=== PATIENT | female | born 1985 | race Caucasian/White ===

== ENCOUNTER 2016-12-09 09:36 | Emergency (ER) | payer MEDICAID ==
--- NOTE | 2016-12-09 11:38 | ER Document Report ---
ED Extremity Problem, Lower - General Chief Complaint: Knee Pain Stated Complaint: LEG PAIN Mode of Arrival: Ambulatory Information source: Patient Notes: 31 y/o F presents to ED c/o of R knee pain. Pt reports approximately 1 month ago she had a slip and near fall during which she injured her right knee. Reports has been evaluated by pcp and has been having sessions with physical therapy. States yesterday evening was doing her physical therapy exercises at home when her right knee gave out. States she felt a pop and her pain has been worse than it has been recently. Denies swelling, color changes, or paresthesias. TRAVEL OUTSIDE OF THE [place] IN LAST 30 DAYS: No - HPI Patient complains to provider of: Pain Location: Knee Occurred: Yesterday Onset/Duration: Worse Quality of pain: Achy Severity: Moderate Pain Level: 3 Recent injury: Possibly Associated symptoms: Alcorn a pop, Painful ambulation Exacerbated by: Movement, Walking Relieved by: Elevation, Ice, Rest - Related Data Allergies/Adverse Reactions: azithromycin [Azithromycin] Allergy (Severe, Verified 05/26/15 23:14) Anaphylaxis cephalexin [Cephalexin] Allergy (Severe, Verified 05/26/15 23:14) Anaphylaxis cephalexin monohydrate [From Keflex] Allergy (Severe, Verified 05/26/15 23:14) Anaphylaxis erythromycin base [Erythromycin Base] Allergy (Severe, Verified 05/26/15 23:14) Anaphylaxis Penicillins Allergy (Mild, Verified 05/26/15 23:14) Hives clindamycin [Clindamycin] Allergy (Verified 05/26/15 23:14) Past Medical History - General Information source: Patient - Social History Smoking Status: Never Smoker Chew tobacco use (# tins/day): No Frequency of alcohol use: None Drug Abuse: None Lives with: Family Family History: Reviewed & Not Pertinent - No family history of inflammatory bowel disease Patient has suicidal ideation: No Patient has homicidal ideation: No Renal/ Medical History: Denies: Hx Peritoneal Dialysis Psychiatric Medical History: Reports: Hx Attention Deficit Hyperactivity Disorder Past Surgical History: Reports: Hx Oral Surgery - Immunizations Hx Diphtheria, Pertussis, Tetanus Vaccination: Yes - apr 2015 Review of Systems - Review of Systems Constitutional: No symptoms reported EENT: No symptoms reported Cardiovascular: No symptoms reported Respiratory: No symptoms reported Gastrointestinal: No symptoms reported Genitourinary: No symptoms reported Female Genitourinary: No symptoms reported Musculoskeletal: See HPI Skin: No symptoms reported Hematologic/Lymphatic: No symptoms reported Neurological/Psychological: No symptoms reported -: Yes All other systems reviewed and negative Physical Exam - Vital signs Vitals: Temp Pulse Resp BP Pulse Ox 98.1 F 86 18 126/74 H 98 12/09/16 09:41 12/09/16 09:41 12/09/16 09:41 12/09/16 09:41 12/09/16 09:41 - General General appearance: Appears well, Alert In distress: None - HEENT Head: Normocephalic, Atraumatic Eyes: Normal Pupils: PERRL - Respiratory Respiratory status: No respiratory distress Chest status: Nontender Breath sounds: Normal Chest palpation: Normal - Cardiovascular Rhythm: Regular Heart sounds: Normal auscultation Murmur: No Pulses: Normal: Radial, Posterior tibial, Dorsalis pedis Normal capillary refill: Yes - Abdominal Inspection: Normal Distension: No distension Bowel sounds: Normal Tenderness: Nontender Organomegaly: No organomegaly - Back Back: Normal, Nontender - Extremities General upper extremity: Normal inspection, Nontender, Normal color, Normal ROM , Normal strength, Normal temperature. No: Edema General lower extremity: Normal inspection, Nontender, Normal color, Normal ROM , Normal strength, Normal temperature, Normal weight bearing. No: Edema, Griselda' s sign Hip: Normal, Nontender Thigh: Normal, Nontender Knee: Tender - Patient has mild tenderness to palpation to anterior and bilateral medial>lateral aspects of right knee. Full but painful active, passive, and against resistance range of motion. Distal neurovascular function intact with immediate capillary refill, palpable pulses, and intact sensation. No swelling, instability, warmth, erythema, or bruising., Pain with ROM, Patellar tendon intact. No: Deformity, Dislocation, Drawer's test instability, Ecchymosis, Instability, Laxity with valgus stress, Unable to bear weight Ankle: Normal, Nontender Foot: Normal, Nontender - Neurological Neuro grossly intact: Yes Cognition: Normal Orientation: AAOx4 Sells Coma Scale Eye Opening: Spontaneous [place] Coma Scale Verbal: Oriented [place]inder Coma Scale Motor: Obeys Commands Sells Coma Scale Total: 15 Speech: Normal Motor strength normal: LUE, RUE, LLE, RLE Sensory: Normal - Skin Skin Temperature: Warm Skin Moisture: Dry Skin Color: Normal Course - Re-evaluation Re-evalutation: 12/09/16 11:42 Patient hemodynamically stable, in no distress. X-ray shows no acute findings with some mild spurring of the patella and medial joint space narrowing. No suggestion of DVT or other significant vascular or infectious etiology at this time. Patient motor and neurovascular function is intact. Will provide Dank wrap and crutches per patient request. Patient appears stable for discharge and agrees with home care, follow-up, and ED return precautions. - Vital Signs Vital signs: Temp Pulse Resp BP Pulse Ox 98.4 F 89 20 124/58 L 98 12/09/16 12:21 12/09/16 12:21 12/09/16 12:21 12/09/16 12:21 12/09/16 12:21 - Diagnostic Test Radiology reviewed: Image reviewed, Reports reviewed Procedures - Immobilization Right Knee Time completed: 11:45 Pre-Proc Neuro Vasc Exam: Normal Immobilizer type: Dank wrap Performed by: RN, PCT Post-Proc Neuro Vasc Exam: Normal Alignment checked and good: Yes Discharge - Discharge Clinical Impression: Knee pain, right Qualifiers: Chronicity: acute Qualified Code(s): M25.561 - Pain in right knee Condition: Stable Disposition: HOME, SELF-CARE Instructions: Suspected Internal Knee Injury ([facility]), Ice & Elevation ([facility]), Use of Crutches ([facility]), Dank Wrap ([facility]), Anti-Inflammatory Medication ([facility]), Arthritis ([facility]) Additional Instructions: Follow-up with your primary care provider and orthopedics on Sunday as discussed. Return to the emergency department for any worsening symptoms or concerns. Prescriptions: Naproxen [Naprosyn 375 Mg Tablet] 375 mg PO BIDP PRN #10 tablet PRN Reason: Referrals: EZRA COLLINS FNP [Primary Care Provider] - Follow up in 3-5 days CASSANDRA MIRANDA MD [ACTIVE STAFF] - Follow up in 3-5 days
[2016-12-09 12:23] VITALS: BP 124/58
== END 2016-12-09 12:15 | disposition home or self-care (01) ==
LOC: ER 09:36
DX: M25.561 Pain in right knee (principal); W19.XXXA Unspecified fall, initial encounter
CPT/HCPCS: 99283

== ENCOUNTER 2017-01-06 20:14 | Emergency (ER) | payer MEDICAID ==
[2017-01-06 20:54] VITALS: BP 120/63
--- NOTE | 2017-01-06 21:49 | ER Document Report ---
ED Eye Complaint - General Chief Complaint: Eye Problem Stated Complaint: LEFT EYE PAIN Time Seen by Provider: 01/06/17 21:45 Mode of Arrival: Ambulatory Information source: Patient TRAVEL OUTSIDE OF THE [place] IN LAST 30 DAYS: No - HPI Patient complains to provider of: left eye pain Onset: Other - 5 days ago Eye location: Left Injury: No Quality of pain: Achy Severity: Mild Associated symptoms: Redness Notes: Patient is a 31 year old female that presents to the ER c/o left eye pain, redness irritation, h/o similar in past, states she has been diagnosed with a "cold sore" on left eye in past, no injury, no drainage, +photophobia - Related Data Allergies/Adverse Reactions: azithromycin [Azithromycin] Allergy (Severe, Verified 01/06/17 20:50) Anaphylaxis cephalexin [Cephalexin] Allergy (Severe, Verified 01/06/17 20:50) Anaphylaxis cephalexin monohydrate [From Keflex] Allergy (Severe, Verified 01/06/17 20:50) Anaphylaxis erythromycin base [Erythromycin Base] Allergy (Severe, Verified 01/06/17 20:50) Anaphylaxis Penicillins Allergy (Mild, Verified 01/06/17 20:50) Hives clindamycin [Clindamycin] Allergy (Verified 01/06/17 20:50) Past Medical History - General Information source: Patient - Social History Smoking Status: Never Smoker Family History: Reviewed & Not Pertinent - No family history of inflammatory bowel disease Renal/ Medical History: Denies: Hx Peritoneal Dialysis Psychiatric Medical History: Reports: Hx Attention Deficit Hyperactivity Disorder Past Surgical History: Reports: Hx Oral Surgery - Immunizations Hx Diphtheria, Pertussis, Tetanus Vaccination: Yes - apr 2015 Review of Systems - Review of Systems Constitutional: No symptoms reported EENT: See HPI Cardiovascular: No symptoms reported Respiratory: No symptoms reported Gastrointestinal: No symptoms reported Genitourinary: No symptoms reported Female Genitourinary: No symptoms reported Musculoskeletal: No symptoms reported Skin: No symptoms reported Hematologic/Lymphatic: No symptoms reported Neurological/Psychological: No symptoms reported -: Yes All other systems reviewed and negative Physical Exam - Vital signs Vitals: Temp Pulse Resp BP Pulse Ox 97.8 F 88 20 120/63 98 01/06/17 20:51 01/06/17 20:51 01/06/17 20:51 01/06/17 20:51 01/06/17 20:51 Interpretation: Normal - General Notes: - General General appearance: Appears well, Alert In distress: None - Respiratory Respiratory status: No respiratory distress - Cardiovascular Rhythm: Regular - Abdominal Inspection: Normal - Back Back: Normal - Extremities General upper extremity: Normal inspection General lower extremity: Normal inspection - Neurological Neuro grossly intact: Yes Orientation: AAOx4 Kulwinder Coma Scale Eye Opening: Spontaneous [place] Coma Scale Verbal: Oriented [place] Coma Scale Motor: Obeys Commands [place] Coma Scale Total: 15 - Psychological Associated symptoms: Normal affect, Normal mood - Skin Skin Temperature: Warm Skin Moisture: Dry Skin Color: Normal - HEENT Head: Normocephalic, Atraumatic Eyes: Normal Cornea: Dendrite - Left lateral eye, Flourescein stain uptake Extraocular movements intact: Yes Eyelashes: Normal Pupils: PERRL Left intraocular pressure: 11 Course - Re-evaluation Re-evalutation: 01/06/17 22:28 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, with similar symptoms today, there appears to be a dendritic lesion in the left lateral eye, therefore she was given prescriptions for the medications that she has been on in the past which include prednisolone acetate drops which are to be given 5 times a day immediately followed by Zirgan drops 5 times a day, she was given information for follow-up with planer offbearer within the next 2-3 days and advised to return if symptoms worsen, patient acknowledges understanding and agreement with this plan - Vital Signs Vital signs: Temp Pulse Resp BP Pulse Ox 97.8 F 88 20 120/63 98 01/06/17 20:51 01/06/17 20:51 01/06/17 20:51 01/06/17 20:51 01/06/17 20:51 Procedures - Eye Procedure Left Time completed: 22:27 Eye Irrigated w/ Saline (ccs): 10 Alcaine Drops Administered: Yes Fluorescein applied: Left Slit lamp used: No Notes: 01/06/17 22:29 Left IOP 11 Eyes picture: 1 - Dendritic appearing lesion Discharge - Discharge Clinical Impression: Dendritic ulcer Disposition: HOME, SELF-CARE Instructions: Eyedrop Use ([facility]), Opthalmic Herpes Simplex ([facility]) Additional Instructions: Follow-up with an planer offbearer in 2-3 days. Return to the emergency room immediately if symptoms worsen or any additional concerns. Prescriptions: Ganciclovir [Zirgan] 1 drop OP 5XD #1 tub Prednisolone Acetate 2 drop OP 5XD #1 bottle Referrals: SUJATHA OLIVO MD [ACTIVE STAFF] - Follow up as needed
[2017-01-06] MEDS ORDERED: TETRACAINE HCL 0.5% OPH SOLN 2 ML OS ONE (21:51)
[2017-01-06] MEDS ORDERED: TETRACAINE HCL 0.5% OPH SOLN 2 ML ONE (21:54)
== END 2017-01-06 22:07 | disposition home or self-care (01) ==
LOC: ER 20:14
DX: B00.52 Herpesviral keratitis (principal); H57.12 Ocular pain, left eye
CPT/HCPCS: 99283

== ENCOUNTER 2017-09-29 08:46 | Emergency (ER) | payer MEDICAID ==
--- NOTE | 2017-09-29 09:35 | ER Document Report ---
HPI - HPI Pain Level: 3 Notes: Patient is a 32-year-old female with a history of asthma who presents to the ED complaining of nasal congestion/discharge, sore throat, occasional dry nonproductive cough, and body ache that began yesterday. Patient states that she has been taking care of her daughter who is currently taking Tamiflu for the flu. Patient states that she is otherwise eating and drinking without difficulties. She is urinating normally and having normal bowel movements. Patient denies any smoking or IV drug use. No other concerns or complaints at this time. Denies any headache, fever, neck pain, chest pain, palpitations, syncope, shortness of breath, wheeze, dyspnea, abdominal pain, nausea/vomiting/ diarrhea, urinary retention, dysuria, hematuria, loss of control of bowel or bladder, or rash. surgical hx: tonsilectomy - ROS Systems Reviewed and Negative: Yes All other systems reviewed and negative - EENT EENT: REPORTS: Sore Throat - RESPIRATORY Respiratory: REPORTS: Trouble Breathing, Coughing - REPRODUCTIVE Reproductive: DENIES: : Past Medical History - Social History Smoking Status: Never Smoker Chew tobacco use (# tins/day): No Frequency of alcohol use: None Drug Abuse: None Family History: Reviewed & Not Pertinent - No family history of inflammatory bowel disease Patient has suicidal ideation: No Patient has homicidal ideation: No Pulmonary Medical History: Reports: Hx Asthma Renal/ Medical History: Denies: Hx Peritoneal Dialysis Psychiatric Medical History: Reports: Hx Attention Deficit Hyperactivity Disorder Past Surgical History: Reports: Hx Oral Surgery - wisdom teeth, Hx Orthopedic Surgery - right knee - Immunizations Hx Diphtheria, Pertussis, Tetanus Vaccination: Yes - apr 2015 Vertical Provider Document - CONSTITUTIONAL Agree With Documented VS: Yes Notes: PHYSICAL EXAMINATION: GENERAL: Well-appearing, well-nourished and in no acute distress. A&Ox4. Answers questions appropriately. HEAD: Atraumatic, normocephalic. EYES: Pupils equal round and reactive to light, extraocular movements intact, sclera anicteric, conjunctiva are normal. ENT: EAC clear b/l. TM's intact b/l without erythema, fluid, or perforation. Nares patent and with clear discharge. oropharynx mild erythema without exudates. Tonsils absent. No palatine shift. Uvula midline. No tongue protrusion. No drooling, hoarseness, or airway compromise. Moist mucous membranes. No sinus tenderness. NECK: Normal range of motion, supple without lymphadenopathy. No rigidity/ meningismus. LUNGS: Breath sounds clear to auscultation bilaterally and equal. No wheezes rales or rhonchi. HEART: Regular rate and rhythm without murmurs, rubs, gallops. ABDOMEN: Soft, nontender, nondistended abdomen. No guarding, no rebound. No masses appreciated. Normal bowel sounds present. No CVA tenderness bilaterally. Obese. No hepatosplenomegaly. NEUROLOGICAL: Normal speech, normal gait. Normal sensory, motor exams PSYCH: Normal mood, normal affect. SKIN: Warm, Dry, normal turgor, no rashes or lesions noted. - INFECTION CONTROL TRAVEL OUTSIDE OF THE [place] IN LAST 30 DAYS: No - RESPIRATORY O2 Sat by Pulse Oximetry: 99 Course - Re-evaluation Re-evalutation: 09/29/17 10:27 Patient is an afebrile, well-hydrated, 32-year-old female who presents to the ED with influenza type a. Vitals are stable. PE is otherwise unremarkable. Lungs are clear to all station bilaterally. Patient does have a history of asthma and because of this risk factor I will cover her with Tamiflu. Risks and benefits attempts were reviewed. Thoroughly reviewed that the flu can we can your immune system and cause a secondary infection to occur thereafter she needs to monitor symptoms closely and seek medical attention with any acute changes or worsening symptoms. Low suspicion for any meningitis, sepsis, peritonsillar/pharyngeal abscess, respiratory compromise, Ross's, or other emergent systemic condition at this time. Patient is aware this condition can change from initial presentation and she needs to monitor symptoms closely. Conservative measures otherwise for symptoms. Recheck with your PCM in 2-3 days. Return to the ED with any worsening/concerning symptoms otherwise as reviewed in discharge. Patient is in agreement. - Vital Signs Vital signs: Temp Pulse Resp BP Pulse Ox 98.1 F 80 18 129/49 H 99 09/29/17 09:02 09/29/17 09:02 09/29/17 09:02 09/29/17 09:02 09/29/17 09:02 Discharge - Discharge Clinical Impression: Influenza A Condition: Stable Disposition: HOME, SELF-CARE Instructions: Influenza ([facility]) Additional Instructions: Maintain adequate fluid intake Take meds as directed Use inhaler as needed tylenol/ibuprofen as needed over the counter cold medication as needed for symptoms Humidified air may help F/u: with your PCM in 2-3 days for a recheck Return to the ED with any fever, worsening pain, chest pain, palpitations, syncope, worsening JAVED, neck pain/stiffness, shortness of breath, wheezing, drooling, trouble swallowing/breathing, abdominal pain, n/v/d, rash, or worsening/concerning symptoms otherwise. Prescriptions: Oseltamivir Phosphate [Tamiflu 75 mg Capsule] 75 mg PO BID #10 capsule Forms: Elevated Blood Pressure Referrals: EZRA COLLINS FNP [Primary Care Provider] - 10/01/17
[2017-09-29 10:21] LABS: A TYPE INFLUENZA AG POSITIVE (NEGATIVE); B INFLUENZA AG NEGATIVE (NEGATIVE)
[2017-09-29 10:38] VITALS: BP 109/53
== END 2017-09-29 10:38 | disposition home or self-care (01) ==
LOC: ER 08:46
DX: J10.1 Influenza due to other identified influenza virus with other respiratory manifestations (principal); R09.81 Nasal congestion; M79.1 Myalgia
CPT/HCPCS: 87070; 87804; 87880; 99283

== ENCOUNTER 2017-12-09 09:58 | Emergency (ER) | payer MEDICAID ==
[2017-12-09] MEDS ORDERED: METOCLOPRAMIDE HCL INJ/PF 10 MG/2 ML SDV IM ONE (10:52)
[2017-12-09] MEDS ORDERED: METOCLOPRAMIDE HCL INJ/PF 10 MG/2 ML SDV IV ONE ×2 (10:53→11:29)
[2017-12-09] MEDS ORDERED: NORMAL SALINE 1000 ML 1,000 ML IV ONE (10:53)
--- NOTE | 2017-12-09 10:55 | ER Document Report ---
ED Medical Screen (RME) - General Chief Complaint: Nausea/Vomiting/Diarrhea Stated Complaint: NAUSEA Time Seen by Provider: 12/09/17 10:32 Notes: This 32-year-old female patient comes emergency room with nausea vomiting diarrhea started yesterday. Initially she just felt poorly. She was feeling kind of nauseous and tried some Zofran but later began vomiting. She reports 4 episodes of diarrhea since midnight one episode yesterday. She initially vomited about a half a trash can full, at this time is only small amounts when she vomits. She does remain quite nauseous. LMP was in this past week. She is not sexually active at this time. I have greeted and performed a rapid initial assessment of this patient. A comprehensive ED assessment and evaluation of the patient, analysis of test results and completion of the medical decision making process will be conducted by additional ED providers. TRAVEL OUTSIDE OF THE [place] IN LAST 30 DAYS: No - Related Data Allergies/Adverse Reactions: azithromycin [Azithromycin] Allergy (Severe, Verified 12/09/17 09:58) Anaphylaxis cephalexin [Cephalexin] Allergy (Severe, Verified 12/09/17 09:58) Anaphylaxis cephalexin monohydrate [From Keflex] Allergy (Severe, Verified 12/09/17 09:58) Anaphylaxis erythromycin base [Erythromycin Base] Allergy (Severe, Verified 12/09/17 09:58) Anaphylaxis Penicillins Allergy (Mild, Verified 12/09/17 09:58) Hives clindamycin [Clindamycin] Allergy (Verified 12/09/17 09:58) Past Medical History - Social History Frequency of alcohol use: None Drug Abuse: None Pulmonary Medical History: Reports: Hx Asthma Renal/ Medical History: Denies: Hx Peritoneal Dialysis Psychiatric Medical History: Reports: Hx Attention Deficit Hyperactivity Disorder Past Surgical History: Reports: Hx Oral Surgery - wisdom teeth, Hx Orthopedic Surgery - right knee - Immunizations Hx Diphtheria, Pertussis, Tetanus Vaccination: Yes - apr 2015 Physical Exam - Vital signs Vitals: Temp Pulse Resp BP Pulse Ox 98.2 F 106 H 14 124/58 L 95 12/09/17 10:02 12/09/17 10:02 12/09/17 10:02 12/09/17 10:02 12/09/17 10:02 Course - Vital Signs Vital signs: Temp Pulse Resp BP Pulse Ox 98.2 F 106 H 14 124/58 L 95 12/09/17 10:02 12/09/17 10:02 12/09/17 10:02 12/09/17 10:02 12/09/17 10:02 Doctor's Discharge - Discharge Referrals: EZRA COLLINS FNP [Primary Care Provider] - Follow up as needed
[2017-12-09 12:17] LABS: HEMOGLOBIN 11.9 g/dL (12.0-15.5); MEAN CORPUSCULAR HEMOGLOBIN 20.3 pg (27.0-33.4); MEAN CORPUSCULAR HGB CONC 32.2 g/dL (32.0-36.0); MEAN CORPUSCULAR VOLUME 63 fl (80-97); PLATELET COUNT 300 10^3/uL (150-450); RED BLOOD COUNT 5.85 10^6/uL (3.72-5.28); WHITE BLOOD COUNT 7.5 10^3/uL (4.0-10.5)
[2017-12-09 12:23] LABS: ALANINE AMINOTRANSFERASE 18 U/L (9-52); ALBUMIN 4.4 g/dL (3.5-5.0); ALKALINE PHOSPHATASE 71 U/L (38-126); ANION GAP 11 (5-19); ASPARTATE AMINO TRANSFERASE 19 U/L (14-36); BILIRUBIN,TOTAL 0.9 mg/dL (0.2-1.3); BLOOD UREA NITROGEN 15 mg/dL (7-20); CALCIUM 9.1 mg/dL (8.4-10.2); CARBON DIOXIDE 30 mmol/L (22-30); CHLORIDE 102 mmol/L (98-107); GLUCOSE 115 mg/dL (75-110); POTASSIUM 3.8 mmol/L (3.6-5.0); SODIUM 143.1 mmol/L (137-145); TOTAL PROTEIN 7.2 g/dL (6.3-8.2)
[2017-12-09 12:28] LABS: APPEARANCE,URINE SLIGHTLY-CLOUDY; BILIRUBIN,URINE NEGATIVE (NEGATIVE); COLOR,URINE YELLOW; GLUCOSE, URINE NEGATIVE (NEGATIVE); KETONES,URINE NEGATIVE (NEGATIVE); LEUKOCYTE ESTERASE,URINE TRACE (NEGATIVE); NITRITE,URINE NEGATIVE (NEGATIVE); PROTEIN,URINE NEGATIVE (NEGATIVE); URINE SPECIFIC GRAVITY 1.023; UROBILINOGEN,URINE NEGATIVE mg/dL (<2.0)
[2017-12-09 13:07] LABS: ABSOLUTE LYMPHOCYTES# (MANUAL) 0.9 10^3/uL (0.5-4.7); ABSOLUTE MONOCYTES # (MANUAL) 0.1 10^3/uL (0.1-1.4); ABSOLUTE NEUTROPHILS# (MANUAL) 6.5 10^3/uL (1.7-8.2); BASOPHILS % (MANUAL) 1 % (0-2); EOSINOPHILS % (MANUAL) 0 % (0-6); LYMPHOCYTES % (MANUAL) 12 % (13-45); MONOCYTES % (MANUAL) 1 % (3-13); SEGMENTED NEUTROPHILS % (MAN) 86 % (42-78); TOTAL CELLS COUNTED 100
[2017-12-09 13:08] LABS: ANISOCYTOSIS 1+; HYPOCHROMASIA 1+; OVALOCYTES SLIGHT; PLATELET COMMENT ADEQUATE
--- NOTE | 2017-12-09 13:37 | ER Document Report ---
ED GI/ - General Chief Complaint: Nausea/Vomiting/Diarrhea Stated Complaint: NAUSEA Time Seen by Provider: 12/09/17 10:32 Mode of Arrival: Ambulatory Information source: Patient Notes: Patient is a 32 year old female who presents to the ER today for 2 days of nausea, vomiting, watery diarrhea. Patient states that it worsened this morning with at least 3 episodes of vomiting and 4 episodes of watery diarrhea. She admits to abdominal pain "all over." She denies any fever but admits to chills. She denies any sick contacts that she knows of. She took one Zofran that she had leftover at home which did not help. TRAVEL OUTSIDE OF THE [place] IN LAST 30 DAYS: No - Related Data Allergies/Adverse Reactions: azithromycin [Azithromycin] Allergy (Severe, Verified 12/09/17 09:58) Anaphylaxis cephalexin [Cephalexin] Allergy (Severe, Verified 12/09/17 09:58) Anaphylaxis cephalexin monohydrate [From Keflex] Allergy (Severe, Verified 12/09/17 09:58) Anaphylaxis erythromycin base [Erythromycin Base] Allergy (Severe, Verified 12/09/17 09:58) Anaphylaxis Penicillins Allergy (Mild, Verified 12/09/17 09:58) Hives clindamycin [Clindamycin] Allergy (Verified 12/09/17 09:58) Past Medical History - General Information source: Patient - Social History Smoking Status: Never Smoker Frequency of alcohol use: None Drug Abuse: None Family History: Reviewed & Not Pertinent - No family history of inflammatory bowel disease Patient has suicidal ideation: No Patient has homicidal ideation: No Pulmonary Medical History: Reports: Hx Asthma Renal/ Medical History: Denies: Hx Peritoneal Dialysis Psychiatric Medical History: Reports: Hx Attention Deficit Hyperactivity Disorder Past Surgical History: Reports: Hx Oral Surgery - wisdom teeth, Hx Orthopedic Surgery - right knee, Hx Tonsillectomy - Immunizations Hx Diphtheria, Pertussis, Tetanus Vaccination: Yes - apr 2015 Review of Systems - Review of Systems Constitutional: No symptoms reported EENT: No symptoms reported Cardiovascular: No symptoms reported Respiratory: No symptoms reported Gastrointestinal: See HPI Genitourinary: No symptoms reported Female Genitourinary: No symptoms reported Musculoskeletal: No symptoms reported Skin: No symptoms reported Hematologic/Lymphatic: No symptoms reported Neurological/Psychological: No symptoms reported Physical Exam - Vital signs Vitals: Temp Pulse Resp BP Pulse Ox 98.2 F 106 H 14 124/58 L 95 12/09/17 10:02 12/09/17 10:02 12/09/17 10:02 12/09/17 10:02 12/09/17 10:02 - Notes Notes: PHYSICAL EXAMINATION: GENERAL: Mildly ill-appearing, but in no acute distress. HEAD: Atraumatic, normocephalic. EYES: Pupils equal round and reactive to light, extraocular movements intact, sclera anicteric, conjunctiva are normal. NECK: Normal range of motion, supple without lymphadenopathy LUNGS: CTAB and equal. No wheezes rales or rhonchi. HEART: Regular rate and rhythm without murmurs ABDOMEN: Soft, no tenderness. No guarding, no rebound BACK: no vertebral tenderness, normal ROM GI/: no CVA tenderness EXTREMITIES: Normal range of motion, no pitting edema. No cyanosis. NEUROLOGICAL: Cranial nerves grossly intact. Normal sensory/motor exams. PSYCH: Normal mood, normal affect. SKIN: Warm, Dry, normal turgor, no rashes or lesions noted Course - Re-evaluation Re-evalutation: 12/09/17 13:37 Patient has not vomited here in the emergency department after being given Reglan, she was also given IV fluids, lab work is unremarkable today with a normal white blood cell count and normal chemistry. Patient will be sent home with Reglan. - Vital Signs Vital signs: Temp Pulse Resp BP Pulse Ox 98.2 F 106 H 14 124/58 L 95 12/09/17 10:02 12/09/17 10:02 12/09/17 10:02 12/09/17 10:02 12/09/17 10:02 - Laboratory Result Diagrams: 12/09/17 11:30 12/09/17 11:30 Laboratory results interpreted by me: 12/09/17 12/09/17 12/09/17 11:30 11:30 11:30 RBC 5.85 H Hgb 11.9 L MCV 63 L MCH 20.3 L RDW 17.0 H Seg Neuts % (Manual) 86 H Lymphocytes % (Manual) 12 L Monocytes % (Manual) 1 L Glucose 115 H Ur Leukocyte Esterase TRACE H Discharge - Discharge Clinical Impression: Nausea vomiting and diarrhea Condition: Stable Disposition: HOME, SELF-CARE Additional Instructions: Return immediately for any new or worsening symptoms. Follow up with primary care provider, call tomorrow to make followup appointment. Prescriptions: Loperamide HCl [Loperamide] 2 mg PO PRN PRN #15 capsule PRN Reason: Metoclopramide HCl [Reglan 10 mg Tablet] 1 tab PO TID PRN #15 tablet PRN Reason: Referrals: EZRA COLLINS FNP [Primary Care Provider] - Follow up as needed
[2017-12-09] MEDS ORDERED: LOPERAMIDE HCL 2 MG CAPSULE PO ONE (13:40)
[2017-12-09 14:10] VITALS: BP 122/52
== END 2017-12-09 14:08 | disposition home or self-care (01) ==
LOC: ER 09:58
DX: R11.2 Nausea with vomiting, unspecified (principal); R19.7 Diarrhea, unspecified; R10.9 Unspecified abdominal pain; R68.83 Chills (without fever); J45.909 Unspecified asthma, uncomplicated
CPT/HCPCS: 99284; 96361; 96374; 36415; 84703; 85025; 80053; 81001; J2765; J7030

== ENCOUNTER → 2018-10-09 | Outpatient (CLI) | payer MEDICAID ==
--- NOTE | 2018-10-09 16:44 | XCELERA REPORT ---
[address] [facility] [id number] Lower Extremity Venous Evaluation Procedure: Color flow and duplex imaging of the veins of the right lower extremity as well as the left Common Femoral vein. Right Sided Venous Evaluation Lucent, lobulated, non vascular area in Popliteal fossa, measuring 4 x 2 x 0.9 cms. Normal vessel filling wall to wall, compression and augmentation as well as Colour flow down to the infrageniculate veins. Left Sided Venous Evaluation The left common femoral vein is fully compressible. Spontaneous and phasic flow is present in the left common femoral vein. Interpretation Summary No duplex evidence of DVT or obstruction in the right lower extremity nor in the left Common Femoral vein. Non vascular structure in right Popliteal fossa, may be a Popliteal cyst. Name: SUE PILLAI Age: 33 yrs Gender: Female : 1985 Patient Status: Outpatient Patient Location: Study Date: 10/09/2018 01:26 PM Reason For Study: RLE PAIN Ordering Physician: DAVIN SEGOVIA Performed By: Lovely Kim : DAVIN SEGOVIA > Antonio Alicia
== END ==
LOC: SP 15:58
PROVIDERS: ATTEND Physician Assistant
DX: R22.41 Localized swelling, mass and lump, right lower limb (principal)
CPT/HCPCS: 93971